=== PATIENT | male | born 1970 | race Caucasian/White ===

== ENCOUNTER 2017-10-06 07:28 | Emergency (ER) | payer OTHER ==
[~2017-10-06] VITALS: Ht 185.4 cm; Wt 131.5 kg
[~2017-10-06 07:28] MED LIST: BENAZEPRIL HCL40 MG PO; CIPRO500 M1 PO; CITRUCEL500 M1 PO; FENOFIBRATE160 M1 PO; FISH OIL 1,2001 EAC1 PO; FLOMAX0.4 M1 PO; IBUPROFEN600 M1 PO; LEVOTHYROXINE200 MC1 PO; PREVALITE PACKET4 GM PO; PYRIDIUM200 M1 PO; VITAMIN D2000 UNIT PO
[2017-10-06 07:30] VITALS: BP 147/92
--- NOTE | 2017-10-06 07:52 | ED SKIN/ALLERGY COMPLAINT ---
History of Present Illness General Chief Complaint: Skin Rash/ Abcess Stated Complaint: ABSCESS ON THIGH Source: patient, family, old records Exam Limitations: no limitations Vital Signs & Intake/Output Vital Signs & Intake/Output Vital Signs Date Time Temp Pulse Resp B/P B/P Pulse O2 O2 Flow FiO2 Mean Ox Delivery Rate 10/06 0736 Room Air 10/06 0730 97.0 71 18 147/92 100 Room Air Allergies Coded Allergies: Penicillins (RASH 10/18/15) Reconcile Medications Benazepril HCl 40 MG TABLET 1 TAB PO DAILY BP (Reported) Cholecalciferol (Vitamin D3) (Vitamin D) (Unknown Strength) CAPSULE (Unknown Dose) PO DAILY SUPPLEMENT (Reported) Cholestyramine/Aspartame (Prevalite Packet) 4 GM POWD.PACK 4 GM PO BID CHOLESTEROL (Reported) Ciprofloxacin HCl (Cipro) 500 MG TABLET 1 TAB PO BID prostatitis Clindamycin HCl 300 MG CAPSULE 1 CAP PO TID abscess Fenofibrate 160 MG TABLET 1 TAB PO DAILY CHOLESTEROL/TRIGLYCERIDES (Reported) Ibuprofen 600 MG TABLET 1 TAB PO Q6PRN PRN pain, fever with food Levothyroxine Sodium 200 MCG TABLET 1 TAB PO DAILY THYROID (Reported) Methylcellulose (Citrucel) (Unknown Strength) TABLET 2 TAB PO QAM SUPPLEMENT (Reported) [place]-3 Fatty Acids/Fish Oil (Fish Oil 1,200 MG Softgel) 1 EACH CAPSULE.DR 1 CAP PO DAILY SUPPLEMENT (Reported) Phenazopyridine HCl (Pyridium) 200 MG TABLET 1 TAB PO TID dysuria Tamsulosin HCl (Flomax) 0.4 MG CAP.ER.24H 1 CAP PO DAILY prostatits Triage Note: 47 YO MALE TO TRIAGE C/O ?ABCESS TO L INNER THIGH FOR A COUPLE DAYS. Triage Nurses Notes Reviewed? yes Onset: Abrupt Duration: week(s): (1), better Timing: recent history Severity: mild Severity Numbers: 1 Location: extremities (l leg) Possible Factors: no cause identified No Modifying Factors: none Associated Symptoms: denies HPI: 47-year-old male with history of hypertension and high cholesterol and hypothyroid presents to the ER stating that for the past week he's had an area to his left inner thigh of redness. He denies any known insect bite or trauma to the area. He states that it began the former [place]. He went to the doctor last week and started him on a 14 day course of Bactrim. He states 2 days ago it burst open and eyes any fever chills diaphoresis. He denies any rashes to his skin otherwise no redness, he denies any pain to his scrotum difficulty urinating nausea vomiting. No history of similar symptoms in the past. He denies any drainage today. Past History Travel History Traveled to [place] past 21 day No Medical History Any Pertinent Medical History? see below for history Neurological: NONE EENT: NONE Cardiovascular: hypertension, hyperlipidemia Respiratory: NONE Gastrointestinal: NONE Hepatic: NONE Renal: NONE Musculoskeletal: NONE Psychiatric: NONE Endocrine: hypothyroidism Cancer(s): NONE Surgical History Surgical History: non-contributory Psychosocial History What is your primary language Singaporean Tobacco Use: Current Daily Use Daily Tobacco Use Amount/Type: => 5 Cigarettes daily Family History Hx Contributory? No Review of Systems Review of Systems Constitutional: Reports: see HPI. Comments Review of systems: See HPI, All other systems negative. Constitutional, no chills no fever HEENT: no sore throat no congestion Cardiovascular: No chest pain , no palpitation Skin: see hpi Respiratory: No dyspnea no cough GI: No nausea no vomiting, no diarrhea Muscle skeletal: No joint pain, no back pain Neurologic: no headache Heme/endocrine: No bruising Physical Exam Physical Exam General Appearance: well developed/nourished, no apparent distress, alert Comments: Well-developed well-nourished patient in no apparent distress. HEENT: Atraumatic, extraocular motion intact Neck: Supple, FROM Back: FROM Respiratory: No respiratory distress. Patient speaking in full complete sentences. Extremities: full range of motion Neuro: awake, alert, and oriented to person, place and time. There were no obvious focal neurologic abnormalities. Skin: Warm & dry; there is a 2 x 2 centimeter area of induration noted to the left proximal inner thigh, there is no surrounding erythema or fluctuance Nontender there is no discharge elicited Psych: Mood affect normal, normal memory normal judgment. Progress Differential Diagnosis: abscess/cellulitis, contact dermatitis, erythema multiforme Plan of Care: I discussed with the patient plan of care he is already course of Bactrim for 14 days, there is no discharge elicited, fluctuance Nontender., Return precautions were discussed at length however given no fluctuance or erythema or discharge or discussed with him rapidly incision and drainage is required at this time which he is in agreement with your little home with a course of Bactrim and clindamycin, return brushes discussed at length I answered all their questions Departure Departure Time of Disposition: 805 Disposition: HOME OR SELF CARE Condition: Stable Clinical Impression Primary Impression: Abscess Referrals: Ingrid HINTON,Nellie Bowie (PCP/Family) Additional Instructions: Continue taking and finish course of Bactrim. Clindamycin as directed. Warm soaks or Epsom salts soaks. Tylenol Motrin for pain. Return to the ER if you redevelop redness warmth discharge, you develop fever chills or have any other concerns. Departure Forms: Customer Survey General Discharge Information Prescriptions: Current Visit Scripts Clindamycin HCl 1 CAP PO TID #21 CAP
[2017-10-06] MEDS ORDERED: CLINDAMYCIN HC300 M1 PO (08:07)
== END 2017-10-06 08:22 ==
LOC: ERH 07:28
DX: L02.416 Cutaneous abscess of left lower limb (principal)